=== PATIENT | male | born 1935 | race African-American/Black ===

== ENCOUNTER 2020-07-03 17:07 | Inpatient (IN) | payer OTHER ==
[~2020-07-03] VITALS: Ht 177.8 cm; Wt 76.3 kg
[~2020-07-03 17:07] MED LIST: ALLO100T PO; AMLO10TA80 PO; ATEN50TA PO; FURO-152 PO; LOSA100T3 PO
[2020-07-03 18:18] LABS: HEMATOCRIT. 30.7 % (42.0-52.0); HEMOGLOBIN. 10.3 g/dL (14.0-18.0); MEAN CORPUSCULAR HEMOGLOBIN 31.2 pg (28.0-32.0); MEAN CORPUSCULAR VOLUME 92.7 fL (80.0-94.0); MEAN PLATELET VOLUME 8.6 fl (7.4-10.4); PLATELET 205 x1000/uL (130-400); RED BLOOD CELL COUNT 3.31 mill/uL (4.7-6.1); RED CELL DISTRIBUTION WIDTH 14.9 % (11.6-14.6)
[2020-07-03 18:28] LABS: CHLORIDE 100 mEq/L (98-107)
[2020-07-03] MEDS ORDERED: FUROSEMIDE 100MG/10ML VIAL IV STA (19:05)
[2020-07-03] MEDS ORDERED: SODIUM CHLORIDE 0.9% 250 ML IV ONE (19:15)
[2020-07-03] MEDS ORDERED: ALBUTEROL (0.083%) 2.5MG/3ML NEB HHN ONE (19:15)
[2020-07-03] MEDS ORDERED: CALCIUM CHLORIDE 1GM/10ML SYR IV ONE (19:15)
[2020-07-03] MEDS ORDERED: INSULIN REGULAR (HUMULIN R) 300UNITS/3ML IV ONE (19:15)
[2020-07-03] MEDS ORDERED: DEXTROSE 50% WATER 50ML SYRINGE IV ONE (19:15)
[2020-07-03 19:24] LABS: PLATELET ESTIMATE NORMAL
[2020-07-03] MEDS ORDERED: ATROPINE SULFATE 1MG/10ML SYR IV ONE (20:00)
[2020-07-03 22:02] LABS: CHLORIDE 100 mEq/L (98-107)
[2020-07-04] VITALS (9 sets, daily range): BP systolic 110–155; BP diastolic 56–73
[2020-07-04] MEDS ORDERED: ATROPINE SULFATE 1MG/ML VIAL IV PRN (02:00)
[2020-07-04] MEDS ORDERED: DEXTROSE 50% WATER 50ML SYRINGE IV PRN (02:00)
[2020-07-04] MEDS: BLOOD SUGAR DIAGNOSTIC STRIP TEST SCH ×3 (06:37→16:55)
[2020-07-04] MEDS: INSULIN LISPRO 100 UNITS/ML SUBCUT SCH ×3 (07:20→17:09)
[2020-07-04] MEDS: SEVELAMER CARBONATE 800 MG TABLET PO SCH ×3 (08:26→17:23)
[2020-07-04] MEDS ORDERED: FOLIC ACID/VITAMIN B COMP W-C TABLET PO SCH (09:00)
[2020-07-04] MEDS ORDERED: FUROSEMIDE 40MG TABLET PO SCH (09:00)
[2020-07-04] MEDS ORDERED: AMLODIPINE 10MG TABLET PO SCH (09:00)
[2020-07-04] MEDS ORDERED: ALLOPURINOL 100 MG TABLET PO SCH (09:00)
[2020-07-04] MEDS ORDERED: LOSARTAN POTASSIUM 100 MG TABLET PO SCH (09:00)
[2020-07-04] MEDS ORDERED: ENOXAPARIN 30MG/0.3ML SYR SUBCUT SCH (11:00)
[2020-07-04 11:46] LABS: BASOPHILS % 0.3 % (0.0-2.0); EOSINOPHILS % 0.9 % (0.0-5.0); HEMATOCRIT. 29.7 % (42.0-52.0); LYMPHOCYTES % 8.6 % (20.0-50.0); MEAN CORPUSCULAR HEMOGLOBIN 30.7 pg (28.0-32.0); MEAN CORPUSCULAR VOLUME 91.3 fL (80.0-94.0); MEAN PLATELET VOLUME 8.2 fl (7.4-10.4); MONOCYTES % 10.4 % (2.0-8.0); NEUTROPHILS % 79.8 % (40.0-76.0); PLATELET 208 x1000/uL (130-400); RED BLOOD CELL COUNT 3.25 mill/uL (4.7-6.1); RED CELL DISTRIBUTION WIDTH 15.2 % (11.6-14.6)
[2020-07-04 12:51] LABS: PHOSPHORUS 3.7 mg/dL (2.5-4.9)
== END 2020-07-04 17:45 | disposition short-term general hospital (02) | DRG 640 ==
LOC: ER 17:07 → MICUSO 21:00 → EDBEDREQ 21:03 → EDBEDREQTM 21:03 → EDBEDREQSVC 21:03 → ENRESERV 22:42 → 3WST 07-04 00:45
PROVIDERS: ADMIT Internal Medicine; ATTEND Internal Medicine
PROC: 5A1D70Z Performance of Urinary Filtration, Intermittent, Less than 6 Hours Per Day (ICD-10-PCS; principal; 2020-07-03)
DX: E87.5 Hyperkalemia (principal); N18.6 End stage renal disease; I12.0 Hypertensive chronic kidney disease with stage 5 chronic kidney disease or end stage renal disease; D63.1 Anemia in chronic kidney disease; E87.1 Hypo-osmolality and hyponatremia; E87.70 Fluid overload, unspecified; E11.22 Type 2 diabetes mellitus with diabetic chronic kidney disease; R00.1 Bradycardia, unspecified; Z99.2 Dependence on renal dialysis; Z79.899 Other long term (current) drug therapy; D63.8 Anemia in other chronic diseases classified elsewhere
CPT/HCPCS: 36415; 71045; 80048; 80053; 82962; 83735; 83880; 84100; 84484; 85025; 93005; 96374; 99291; J0461; J1650; J1815; J1940; J3490; J7050

== ENCOUNTER 2022-03-05 15:59 | Emergency (ER) | payer OTHER ==
[~2022-03-05] VITALS: Ht 180.3 cm; Wt 77.8 kg
[~2022-03-05 15:59] MED LIST changes: -ATEN50TA PO
[2022-03-05] MEDS ORDERED: KETOROLAC 15MG/ML VIAL IV ONE (17:00)
[2022-03-05 17:05] LABS: CHLORIDE 94 mEq/L (98-107)
[2022-03-05 17:17] LABS: HEMATOCRIT. 37.4 % (42.0-52.0); HEMOGLOBIN. 12.7 g/dL (14.0-18.0); MEAN CORPUSCULAR HEMOGLOBIN 31.2 pg (28.0-32.0); MEAN CORPUSCULAR VOLUME 91.7 fL (80.0-94.0); MEAN PLATELET VOLUME 8.3 fl (7.4-10.4); PLATELET 209 x1000/uL (130-400); RED BLOOD CELL COUNT 4.08 mill/uL (4.7-6.1)
[2022-03-05 18:33] LABS: PLATELET ESTIMATE NORMAL
[2022-03-05 22:28] VITALS: BP 152/63
== END 2022-03-05 22:32 | disposition home or self-care (01) ==
LOC: ER 15:59
DX: M54.89 Other dorsalgia (principal); I12.0 Hypertensive chronic kidney disease with stage 5 chronic kidney disease or end stage renal disease; E11.22 Type 2 diabetes mellitus with diabetic chronic kidney disease; N18.6 End stage renal disease; Z99.2 Dependence on renal dialysis
CPT/HCPCS: 36415; 74176; 80053; 83605; 83690; 84484; 85025; 96374; 99284; J1885

== ENCOUNTER 2022-05-17 16:47 | Emergency (ER) | payer OTHER ==
[~2022-05-17] VITALS: Ht 180.3 cm; Wt 73.0 kg
[2022-05-17] MEDS ORDERED: ACETAMINOPHEN 325MG TABLET PO NR (17:30)
[2022-05-17] MEDS ORDERED: LIDOCAINE 5% PATCH TOP SCH (17:30)
[2022-05-17] MEDS ORDERED: MORPHINE SULFATE 4 MG/ML CPJ (NOT FOR IM USE) IV NR (17:30)
[2022-05-17 17:44] LABS: BASOPHILS % 0.4 % (0.0-2.0); EOSINOPHILS % 2.1 % (0.0-5.0); HEMATOCRIT. 32.4 % (42.0-52.0); HEMOGLOBIN. 10.9 g/dL (14.0-18.0); LYMPHOCYTES % 10.2 % (20.0-50.0); MEAN CORPUSCULAR HEMOGLOBIN 31.1 pg (28.0-32.0); MEAN CORPUSCULAR VOLUME 92.3 fL (80.0-94.0); NEUTROPHILS % 78.3 % (40.0-76.0); PLATELET 225 x1000/uL (130-400); RED BLOOD CELL COUNT 3.51 mill/uL (4.7-6.1); RED CELL DISTRIBUTION WIDTH 13.8 % (11.6-14.6)
[2022-05-17 17:54] LABS: CHLORIDE 99 mEq/L (98-107)
[2022-05-17] MEDS ORDERED: ONDANSETRON HCL 4MG/2ML INJ IV ONE (20:30)
[2022-05-17] MEDS ORDERED: MORPHINE SULFATE 4 MG/ML CPJ (NOT FOR IM USE) IV ONE ×2 (20:30→23:45)
[2022-05-18] VITALS: BP 150/72
== END 2022-05-18 01:56 | disposition short-term general hospital (02) ==
LOC: ER 16:47
DX: M54.50 Low back pain, unspecified (principal); S30.0XXA Contusion of lower back and pelvis, initial encounter; W18.39XA Other fall on same level, initial encounter; Y93.89 Activity, other specified; Y92.89 Other specified places as the place of occurrence of the external cause; Y99.8 Other external cause status; N18.6 End stage renal disease; E11.9 Type 2 diabetes mellitus without complications; I10 Essential (primary) hypertension; Z20.822 Contact with and (suspected) exposure to COVID-19
CPT/HCPCS: 36415; 70450; 71045; 72125; 72131; 80053; 83880; 85025; 87426; 93005; 96374; 96375; 96376; 99285; C9803; J2270; J2405